=== PATIENT | male | born 1980 | race Two or more races ===

== ENCOUNTER 2018-09-07 05:19 | Emergency (ER) | payer OTHER ==
--- NOTE | 2018-09-07 05:58 | PDOC ---
History of Present Illness - General Chief Complaint: Injury Stated Complaint: FALL,BACK PAIN Time Seen by Provider: 09/07/18 05:24 History Source: Patient - History of Present Illness Initial Comments: 09/07/18 06:03 37 year old male trip/ slid down 3 stairs at 1.30 in the morning c/o right sided back pain. denies midline pain/ hip pain. able to walk. full rom to hip. no rib pain Past History - Past Medical History Allergies/Adverse Reactions: Allergies Allergy/AdvReac Type Severity Reaction Status Date / Time No Known Allergies Allergy Verified 09/07/18 06:39 Home Medications: Ambulatory Orders NK [No Known Home Medication] 09/07/18 *Physical Exam - Vital Signs 09/07/18 06:36 Last Vital Signs Temp Pulse Resp BP Pulse Ox 98.0 F 84 18 123/72 98 09/07/18 05:19 09/07/18 05:19 09/07/18 05:19 09/07/18 05:19 09/07/18 05:19 - Physical Exam General Appearance: Yes: Appropriately Dressed Respiratory/Chest: positive: Lungs Clear, Normal Breath Sounds Gastrointestinal/Abdominal: positive: Normal Bowel Sounds, Soft Musculoskeletal: positive: Muscle Spasm (right lower back. no midline tenderness. full rom to hip. able to walk ). negative: CVA Tenderness (R), Vertebral Tenderness Extremity: positive: Normal Capillary Refill, Normal Inspection, Normal Range of Motion Integumentary: positive: Normal Color, Dry, Warm Neurologic: positive: Fully Oriented, Alert, Normal Mood/Affect Medical Decision Making - Medical Decision Making 09/07/18 07:04 UA pending. patient signed out to Gloria JUAREZ. *DC/Admit/Observation/Transfer Diagnosis at time of Disposition: Back pain Qualifiers: Back pain location: low back pain Chronicity: acute Back pain laterality: right Sciatica presence: without sciatica Qualified Code(s): M54.5 - Low back pain - Discharge Dispostion Disposition: HOME Condition at time of disposition: Fair - Referrals Referrals: Jamie Amor MD [Staff Physician] - - Patient Instructions Printed Discharge Instructions: How to Prevent Falls Additional Instructions: apply ice/ heat to the area, take ibuprofen every 6 hours as needed for pain take flexeril as prescribed. do not drive after taking the medication follow up with your doctor as soon as possible. - Post Discharge Activity Forms/Work/School Notes: Back to Work
[2018-09-07] MEDS ORDERED: KETOROLAC TROMETHAMINE 30 MG/1 ML VIAL IM ONE (06:03)
[2018-09-07] MEDS ORDERED: diazePAM 5 MG TABLET PO ONE (06:03)
[2018-09-07 06:22] VITALS: BP 123/72; PULSE 84; TEMP 98; BMI 33.3
[2018-09-07 07:50] LABS: URINE APPEARANCE CLEAR; URINE BILIRUBIN NEGATIVE (<2.0 mg/dL); URINE COLOR YELLOW; URINE GLUCOSE (UA) NEGATIVE (NEGATIVE); URINE KETONE NEGATIVE (NEGATIVE); URINE LEUK ESTERASE NEGATIVE (NEGATIVE); URINE NITRITE NEGATIVE (NEGATIVE); URINE PROTEIN NEGATIVE (NEGATIVE); URINE UROBILINOGEN NEGATIVE mg/dL (0.2-1.0)
--- NOTE | 2018-09-07 08:55 | PDOC ---
*Physical Exam - Vital Signs Last Vital Signs Temp Pulse Resp BP Pulse Ox 98.0 F 84 18 123/72 98 09/07/18 05:19 09/07/18 05:19 09/07/18 05:19 09/07/18 05:19 09/07/18 05:19 - Physical Exam General Appearance: Yes: Appropriately Dressed. No: Apparent Distress HEENT: positive: Normal Voice Neck: positive: Supple Respiratory/Chest: negative: Respiratory Distress Gastrointestinal/Abdominal: positive: Normal Bowel Sounds, Soft. negative: Tender, Distended, Guarding Integumentary: positive: Dry, Warm Neurologic: positive: Fully Oriented, Alert, Normal Mood/Affect ED Treatment Course - ADDITIONAL ORDERS Additional order review: Laboratory Results 09/07/18 06:29 Urine Color Yellow Urine Appearance Clear Urine pH 6.0 Ur Specific [place] 1.028 Urine Protein Negative Urine Glucose (UA) Negative Urine Ketones Negative Urine Blood Negative Urine Nitrite Negative Urine Bilirubin Negative Urine Urobilinogen Negative Ur Leukocyte Esterase Negative - Medications Given in the ED: ED Medications Discontinued Medications Generic Name Dose Route Start Last Admin Trade Name Wesley PRN Reason Stop Dose Admin Diazepam 5 mg 09/07/18 06:03 09/07/18 06:25 Valium - PO 09/07/18 06:04 5 mg ONCE ONE Administration Ketorolac Tromethamine 30 mg 09/07/18 06:03 09/07/18 06:25 Toradol Injection - IM 09/07/18 06:04 30 mg ONCE ONE Administration Medical Decision Making - Medical Decision Making 09/07/18 09:25 UA neg. Pt improved w/ meds and stable for discharge *DC/Admit/Observation/Transfer Diagnosis at time of Disposition: Back pain Qualifiers: Back pain location: low back pain Chronicity: acute Back pain laterality: right Sciatica presence: without sciatica Qualified Code(s): M54.5 - Low back pain - Discharge Dispostion Disposition: HOME Condition at time of disposition: Fair - Prescriptions Prescriptions: Cyclobenzaprine HCl [Flexeril -] 10 mg PO TID #9 tablet Ibuprofen [Motrin -] 800 mg PO Q6H #30 tablet - Referrals Referrals: Jamie Amor MD [Staff Physician] - - Patient Instructions Printed Discharge Instructions: DI for Muscle Strain Additional Instructions: apply ice/ heat to the area, take ibuprofen every 6 hours as needed for pain take flexeril as prescribed. do not drive after taking the medication follow up with your doctor as soon as possible. - Post Discharge Activity Forms/Work/School Notes: Back to Work
== END 2018-09-07 08:05 | disposition home or self-care (01) ==
LOC: JER 05:19
PROC: 3E0233Z Introduction of Anti-inflammatory into Muscle, Percutaneous Approach (ICD-10-PCS; principal; 2018-09-07)
DX: M54.5 Low back pain (principal); W10.8XXA Fall (on) (from) other stairs and steps, initial encounter; Y93.89 Activity, other specified; Y92.018 Other place in single-family (private) house as the place of occurrence of the external cause; Y99.8 Other external cause status
CPT/HCPCS: 81003; 99281-25

== ENCOUNTER 2020-04-19 14:37 | Emergency (ER) | payer OTHER ==
[2020-04-19 14:56] VITALS: BP 130/90; PULSE 85; TEMP 98.8; BMI 33.8
[2020-04-19] MEDS ORDERED: DIPHTH,PERTUSS(ACELL),TET 0.5 ML DISP.SYRIN IM ONE ×2 (15:13→15:14)
--- NOTE | 2020-04-19 15:36 | PDOC ---
History of Present Illness - General Chief Complaint: Laceration Stated Complaint: LT LEG LACERATION Time Seen by Provider: 04/19/20 14:59 History Source: Patient Exam Limitations: No Limitations - History of Present Illness Initial Comments: 04/19/20 15:30 39-year-old male presents to ED with laceration to his left calf which he sustained today. Patient states in the backyard when a piece of the metal fence was sticking out and got him. Patient denies history of immunosuppression and unsure of last tetanus. Timing/Duration: reports: just prior to arrival Severity: Yes: mild Location: reports: extremities Respiratory Risk Factors: reports: other Associated Symptoms: reports: other (laceration) Past History - Travel History Traveled outside of the country in the last 30 days: No Close contact w/someone who was outside of country & ill: No - Medical History Allergies/Adverse Reactions: Allergies Allergy/AdvReac Type Severity Reaction Status Date / Time No Known Allergies Allergy Verified 04/19/20 15:06 Home Medications: Ambulatory Orders Gemfibrozil [Lopid -] 600 mg PO DAILY 07/11/19 Hypercholesterolemia: Yes - Psycho-Social/Smoking History Patient Lives Alone: No Lives with/in: spouse/SO Smoking History: Never smoked Have you smoked in the past 12 months: No Information on smoking cessation initiated: No - Substance Abuse Hx (Audit-C & DAST Scrn) How often the patient has a drink containing alcohol: Monthly or less Number of drinks the patient has on a typical day: 1 or 2 How often the patient has six or more drinks on one occasion: Never Score: In Men: 4 or > Positive; In Women: 3 or > Positive: 1 Screen Result (Pos requires Nsg. Audit-10AR): Negative In the last yr the pt used illegal drug/Rx for NonMed reason: No Score: Yes response is considered Positive: 0 Screen Result (Positive result requires Nsg. DAST-10): Negative Review of Systems - Review of Systems Able to Perform ROS?: No Is the patient limited Tuvaluan proficient: No Constitutional: No: Symptoms Reported HEENTM: No: Symptoms Reported Respiratory: No: Symptoms reported Cardiac (ROS): No: Symptoms Reported : No: Symptoms Reported Musculoskeletal: No: Symptoms Reported Integumentary: Yes: Other (lac to left calf) Neurological: No: Symptoms reported Endocrine: No: Symptoms Reported *Physical Exam - Vital Signs Last Vital Signs Temp Pulse Resp BP Pulse Ox 98.8 F 85 18 130/90 97 04/19/20 14:54 04/19/20 14:54 04/19/20 14:54 04/19/20 14:54 04/19/20 14:54 - Physical Exam General Appearance: Yes: Nourished, Appropriately Dressed. No: Apparent Distress HEENT: negative: Pale Conjunctivae Neck: positive: Supple Respiratory/Chest: positive: Lungs Clear, Normal Breath Sounds. negative: Respiratory Distress, Accessory Muscle Use Cardiovascular: positive: Regular Rhythm, Regular Rate. negative: Murmur Gastrointestinal/Abdominal: positive: Soft. negative: Tenderness Integumentary: positive: Other (2 cm laceration to left calf. surrounding skin intact) Neurologic: positive: Motor Strength 5/5 (Ambulatory) Procedures - Laceration/Wound Repair Left Calf Wound Length: to 2.5 cm Wound Explored: clean Wound's Depth, Shape: superficial, linear Irrigated w/ Saline: Yes Betadine Prep: Yes Anesthesia: 1% Lidocaine Amount of Anesthetic (ccs): 3 Wound Repaired With: Sutures Suture Size/Type: 4:0 Number of Sutures: 5 Sterile Dressing Applied: Yes ED Treatment Course - Medications Given in the ED: ED Medications Discontinued Medications Generic Name Dose Route Start Last Admin Trade Name Wesley PRN Reason Stop Dose Admin Diphtheria/Tetanus/Acell Pertussis 0.5 ml 04/19/20 15:13 04/19/20 15:14 Boostrix - IM 04/19/20 15:14 0.5 ml .ONCE ONE Administration Medical Decision Making - Medical Decision Making 04/19/20 15:37 Chief complaint: Laceration to left calf after being cut with a piece of metal fence in his backyard. Exam: Noted 2 cm laceration Plan: repair done without difficulty patient to return in 14 days 04/19/20 15:37 Discharge - Discharge Information Problems reviewed: Yes Clinical Impression/Diagnosis: Laceration of left calf Condition: Improved Disposition: HOME - Follow up/Referral - Patient Discharge Instructions Patient Printed Discharge Instructions: DI for Laceration Repair Additional Instructions: Please return in 14 days for suture removal. Please keep area clean and dry removing the bandage within 72 hours and cleanse daily with soap and water applying bacitracin to area until you return to the ED. If you notice any redness swelling or drainage from the site prior to 14 days please return to the ED sooner this may be a sign of infection. May take Motrin or Tylenol for discomfort. - Post Discharge Activity
== END 2020-04-19 15:41 | disposition home or self-care (01) ==
LOC: JERFT 14:37
PROC: 0HQLXZZ Repair Left Lower Leg Skin, External Approach (ICD-10-PCS; principal; 2020-04-19)
PROC: 3E0234Z Introduction of Serum, Toxoid and Vaccine into Muscle, Percutaneous Approach (ICD-10-PCS; 2020-04-19)
DX: S81.812A Laceration without foreign body, left lower leg, initial encounter (principal)
CPT/HCPCS: 90715; 99284-25

== ENCOUNTER 2024-05-22 03:25 | Emergency (ER) | payer OTHER ==
[2024-05-22 03:37] VITALS: BP 138/90; PULSE 68; RESP 19; TEMP 97.6; BMI 33.0
[2024-05-22] MEDS ORDERED: DIPHTH,PERTUSS(ACELL),TET 0.5 ML DISP.SYRIN IM ONE (04:28)
[2024-05-22] MEDS: TETANUS AND DIPHTHERIA TOXOID 0.5 ML DISP.SYRIN IM ONE (04:30)
== END 2024-05-22 05:45 | disposition home or self-care (01) ==
LOC: JER 03:25
PROC: 3E0234Z Introduction of Serum, Toxoid and Vaccine into Muscle, Percutaneous Approach (ICD-10-PCS; principal; 2024-05-22)
DX: S61.412A Laceration without foreign body of left hand, initial encounter (principal); W26.8XXA Contact with other sharp object(s), not elsewhere classified, initial encounter; Z23 Encounter for immunization
CPT/HCPCS: 99282-25

== ENCOUNTER 2024-10-16 22:35 | Emergency (ER) | payer OTHER ==
[~2024-10-16 22:35] MED LIST: LIDOCAINE PATCH REMOVAL MC SCH
[2024-10-16 22:39] VITALS: BP 130/89; PULSE 82; RESP 18; TEMP 98; BMI 35.2
[2024-10-16] MEDS ORDERED: KETOROLAC TROMETHAMINE 30 MG/1 ML VIAL ONE (23:31)
[2024-10-16] MEDS ORDERED: LIDOCAINE 4% PATCH TP ONE (23:32)
[2024-10-16] MEDS: KETOROLAC TROMETHAMINE 30 MG/1 ML VIAL IM ONE (23:38)
[2024-10-16] MEDS: LIDOCAINE 5% TOPICAL PATCH TP ONE (23:38)
== END 2024-10-17 01:14 | disposition home or self-care (01) ==
LOC: JER 22:35 → JERFT 22:35 → JER 10-17 01:14
PROC: 3E0233Z Introduction of Anti-inflammatory into Muscle, Percutaneous Approach (ICD-10-PCS; principal; 2024-10-16)
DX: M54.50 Low back pain, unspecified (principal); W11.XXXA Fall on and from ladder, initial encounter
CPT/HCPCS: 72131-TC; 99285-25

== ENCOUNTER 2025-03-11 02:01 | Emergency (ER) | payer OTHER ==
[2025-03-11 02:32] VITALS: BP 132/85; PULSE 82; RESP 18; TEMP 98.2; BMI 34.9
[2025-03-11] MEDS ORDERED: BACITRACIN ZINC 15 GM TUBE TOPICAL OINTMENT ONE (04:15)
== END 2025-03-11 04:20 | disposition home or self-care (01) ==
LOC: JER 02:01
PROC: 0HQGXZZ Repair Left Hand Skin, External Approach (ICD-10-PCS; principal; 2025-03-11)
DX: S41.111A Laceration without foreign body of right upper arm, initial encounter (principal); W18.02XA Striking against glass with subsequent fall, initial encounter
CPT/HCPCS: 73090-TC-RT-FY; 99283-25